=== PATIENT | female | born 1980 ===

== ENCOUNTER 2024-10-29 06:01 | Day surgery (SDC) | payer OTHER ==
[~2024-10-29 06:01] MED LIST: ULTRAM ER100 MG PO
[2024-10-29] MEDS ORDERED: FLUMAZENIL 0.5 MG/5 ML ML IV STA (13:19)
[2024-10-29] MEDS ORDERED: NALOXONE HCL 0.4 MG/ML AMPUL IV STA (13:19)
[2024-10-29] MEDS ORDERED: MIDAZOLAM HCL 2 MG/2 ML VIAL IV ONE (13:30)
[2024-10-29] MEDS ORDERED: DIPHENHYDRAMINE HCL 50 MG/ML VIAL 1ML IV ONE (13:30)
[2024-10-29] MEDS ORDERED: fentaNYL CITRATE 50 MCG/ML AMPUL IV PUSH ONE (13:30)
== END 2024-10-29 15:05 | disposition home or self-care (01) ==
LOC: AMB-ENDOS 06:01
PROVIDERS: ATTEND Internal Medicine
DX: I85.00 Esophageal varices without bleeding (principal); K31.811 Angiodysplasia of stomach and duodenum with bleeding; K29.60 Other gastritis without bleeding; K74.69 Other cirrhosis of liver; D64.9 Anemia, unspecified